=== PATIENT | female | born 1985 | race Two or more races ===

== ENCOUNTER 2017-09-20 08:39 | Outpatient (CLI) | payer OTHER | END 2017-09-20 09:02 | disposition home or self-care (01) | LOC: LAB 08:39 | DX: C73 Malignant neoplasm of thyroid gland (principal); E89.0 Postprocedural hypothyroidism ==

== ENCOUNTER 2018-06-01 08:30 | Outpatient (CLI) | payer OTHER | END 2018-06-01 08:43 | disposition home or self-care (01) | LOC: LAB 08:30 | DX: C73 Malignant neoplasm of thyroid gland (principal); E89.0 Postprocedural hypothyroidism ==

== ENCOUNTER 2019-01-22 06:33 | Outpatient (CLI) | payer OTHER | END 2019-01-22 06:45 | disposition home or self-care (01) | LOC: LAB 06:33 | DX: E03.8 Other specified hypothyroidism (principal); C73 Malignant neoplasm of thyroid gland; E89.0 Postprocedural hypothyroidism; E78.2 Mixed hyperlipidemia ==

== ENCOUNTER → 2019-06-20 07:03 | Outpatient (CLI) | payer OTHER | END | disposition home or self-care (01) | LOC: LAB 07:03 | DX: C73 Malignant neoplasm of thyroid gland (principal); E89.0 Postprocedural hypothyroidism ==

== ENCOUNTER 2020-05-31 07:06 | Outpatient (CLI) | payer OTHER | END 2020-05-31 07:18 | disposition home or self-care (01) | LOC: LAB 07:06 | PROVIDERS: ATTEND Internal Medicine Sports Medicine | DX: C73 Malignant neoplasm of thyroid gland (principal); E89.0 Postprocedural hypothyroidism; D64.89 Other specified anemias; E11.9 Type 2 diabetes mellitus without complications; E78.2 Mixed hyperlipidemia; I10 Essential (primary) hypertension; E03.8 Other specified hypothyroidism ==

== ENCOUNTER → 2020-09-15 06:41 | Outpatient (CLI) | payer OTHER | END | disposition home or self-care (01) | LOC: LAB 06:41 | PROVIDERS: ATTEND Internal Medicine Sports Medicine | DX: C73 Malignant neoplasm of thyroid gland (principal); E89.0 Postprocedural hypothyroidism; E78.2 Mixed hyperlipidemia; E78.49 Other hyperlipidemia ==

== ENCOUNTER 2020-12-23 08:32 | Outpatient (CLI) | payer OTHER | END 2020-12-23 08:41 | disposition home or self-care (01) | LOC: NUCLEAR 08:32 | PROVIDERS: ATTEND Internal Medicine Rheumatology | DX: I73.9 Peripheral vascular disease, unspecified (principal) ==

== ENCOUNTER 2020-12-23 10:02 | Outpatient (CLI) | payer OTHER | END 2020-12-23 15:00 | disposition home or self-care (01) | LOC: LAB 10:02 | PROVIDERS: ATTEND Internal Medicine Rheumatology | DX: M06.09 Rheumatoid arthritis without rheumatoid factor, multiple sites (principal); E03.8 Other specified hypothyroidism; R76.0 Raised antibody titer; M05.79 Rheumatoid arthritis with rheumatoid factor of multiple sites without organ or systems involvement ==

== ENCOUNTER 2021-10-19 09:00 | Outpatient (CLI) | payer OTHER | END 2021-10-19 09:01 | disposition home or self-care (01) | LOC: LAB 09:00 | PROVIDERS: ATTEND Internal Medicine Sports Medicine | DX: C73 Malignant neoplasm of thyroid gland (principal); E89.0 Postprocedural hypothyroidism ==

== ENCOUNTER 2022-10-19 06:59 | Outpatient (CLI) | payer OTHER | END 2022-10-19 07:13 | disposition home or self-care (01) | LOC: LAB 06:59 | PROVIDERS: ATTEND Internal Medicine Sports Medicine | DX: D64.9 Anemia, unspecified (principal); E11.9 Type 2 diabetes mellitus without complications; E78.2 Mixed hyperlipidemia; I10 Essential (primary) hypertension; E03.8 Other specified hypothyroidism; C73 Malignant neoplasm of thyroid gland ==

== ENCOUNTER 2024-03-19 08:36 | Outpatient (CLI) | payer OTHER ==
[2024-03-19 09:52] LABS: PH,URINE 5.5 (5.0-8.0); URINE APPEARANCE Clear; URINE BILIRRUBIN Negative (NEGATIVE); URINE BLOOD Negative; URINE COLOR Yellow; URINE GLUCOSE Negative (NEGATIVE); URINE KETONE Negative (NEGATIVE); URINE LEUKOCYTE Trace; URINE NITRATE Negative; URINE PROTEIN Negative (NEGATIVE); URINE UROBILINOGEN 0.2 E.U./dl
[2024-03-19 09:57] LABS: URINE BACTERIA 1313.8 uL (0.0-1933); URINE EPITHELIAL CELLS 13.1 uL (0.0-38.8); URINE RBC 56.8 uL (0.0-20.8)
[2024-03-19 09:59] LABS: HEMATOCRIT 34.9 % (36.0-45.00); HEMOGLOBIN 11.6 g/dL (12.0-15.00); MEAN CELL VOLUME 73.6 fL (80.00-100.00); MEAN CORPUSCULAR HEMOGLOBIN 24.4 pg (27.00-32.0); MEAN CORPUSCULAR HGB CONC 33.2 g/dl (32.0-36.0); PLATELET COUNT 304 K/uL (150-450); RED BLOOD COUNT 4.74 M/uL (4.00-6.00); RED CELL DISTRIBUTION WIDTH 16.5 % (11.5-14.5)
[2024-03-19 11:23] LABS: ALBUMIN 3.8 gm/dL (3.4-5.0); BILIRUBIN TOTAL 0.23 mg/dL (0.3-1.2); CALCIUM 9.1 mg/dL (8.5-10.1); CHOL HDL RATIO 3.5 (0-5.0); CREATININE SERUM 0.86 mg/dL (0.55-1.02); GFR 73.46; GLOBULINA 4.1 G/DL (2.4-3.5); POTASSIUM 4.38 mEq/L (3.5-5.1); T4 FREE 1.36 NG/ML (0.76-1.46); TOTAL PROTEIN 7.9 gm/dL (6.4-8.2)
[2024-03-19 11:25] LABS: TSH 0.12 uIU/mL (0.358-3.74)
== END 2024-03-19 08:38 | disposition home or self-care (01) ==
LOC: LAB 08:36
PROVIDERS: ATTEND Internal Medicine Sports Medicine
DX: D64.9 Anemia, unspecified (principal); E11.9 Type 2 diabetes mellitus without complications; E78.2 Mixed hyperlipidemia; I10 Essential (primary) hypertension; E03.8 Other specified hypothyroidism; C73 Malignant neoplasm of thyroid gland; E89.0 Postprocedural hypothyroidism

== ENCOUNTER 2024-03-19 09:18 | Outpatient (CLI) | payer OTHER | END 2024-03-19 09:26 | disposition home or self-care (01) | LOC: SONOGRAMA 09:18 | PROVIDERS: ATTEND Internal Medicine Sports Medicine | DX: C73 Malignant neoplasm of thyroid gland (principal) ==